=== PATIENT | female | born 1985 | race African-American/Black ===

== ENCOUNTER 2022-10-20 10:31 | Inpatient (IN) | payer BC ==
[~2022-10-20] VITALS: Ht 167.6 cm; Wt 78.5 kg
[2022-10-20] MEDS ORDERED: TETANUS AND DIPHTHERIA TOX/PF 0.5ML SYR (ADULT) IM ONE (11:30)
[2022-10-20] MEDS ORDERED: SODIUM CHLORIDE 0.9% 1,000 ML IV ONE (11:30)
[2022-10-20] MEDS ORDERED: LIDOCAINE HCL 1% 20ML VIAL (Pyxis) INJ INFIL ONE (11:45)
[2022-10-20] MEDS ORDERED: LIDOCAINE HCL/PF 1% 10 MG/ML 5ML VIAL INFIL NR (12:15)
[2022-10-20 12:44] LABS: EOSINOPHILS % 1.4 % (0.0-5.0); HEMATOCRIT. 39.4 % (36.0-48.0); HEMOGLOBIN. 13.3 g/dL (12.0-16.0); LYMPHOCYTES % 7.6 % (20.0-50.0); MEAN CORPUSCULAR HEMOGLOBIN 31.9 pg (28.0-32.0); MEAN PLATELET VOLUME 9.4 fl (7.4-10.4); MONOCYTES % 3.7 % (2.0-8.0); NEUTROPHILS % 86.3 % (40.0-76.0); PLATELET 239 x1000/uL (130-400); RED BLOOD CELL COUNT 4.15 mill/uL (4.2-5.4)
[2022-10-20 12:53] LABS: CHLORIDE 108 mEq/L (98-107)
[2022-10-20 12:55] LABS: PROTHROMBIN TIME 10.4 sec (9.6-11.0)
[2022-10-20] MEDS ORDERED: BACITRACIN 15GM TUBE TOP ONE (13:30)
[2022-10-20 18:00] VITALS: BP 113/59
[2022-10-20 20:00] VITALS: BP 106/71
[2022-10-20] MEDS ORDERED: ONDANSETRON HCL 4MG TABLET PO PRN (21:00)
[2022-10-20] MEDS ORDERED: HYDROCODONE/ACETAMINOPHEN 5/325MG TABLET PO PRN (21:00)
[2022-10-20] MEDS: FAMOTIDINE 20MG TABLET PO SCH (21:00)
[2022-10-20] MEDS ORDERED: ONDANSETRON HCL 4MG/2ML INJ IV PRN (21:00)
[2022-10-20] MEDS ORDERED: NALOXONE HCL 0.4MG/ML VIAL IV PRN (21:15)
[2022-10-21] VITALS: BP 111/52
[2022-10-21 04:00] VITALS: BP 115/73
[2022-10-21 08:00] VITALS: BP 117/75
[2022-10-21] MEDS: FAMOTIDINE 20MG TABLET PO SCH (09:00)
[2022-10-21 12:00] VITALS: BP 118/76
[2022-10-21 12:35] VITALS: BP 118/76
[2022-10-21 15:24] LABS: CLARITY URINE CLEAR (CLEAR); COLOR URINE YELLOW (YELLOW); KETONES URINE NEGATIVE (NEGATIVE); LEUKOCYTE ESTERASE URINE 1+ (NEGATIVE); NITRITE URINE NEGATIVE (NEGATIVE); OCCULT BLOOD URINE NEGATIVE (NEGATIVE); PROTEIN URINE NEGATIVE (NEGATIVE); SPECIFIC GRAVITY URINE 1.024 (1.005-1.030); UROBILINOGEN URINE 0.2 E.U./dL (0.2-1.0)
[2022-10-21 15:38] LABS: *AMPHETAMINES SCREEN URINE NEGATIVE (NEGATIVE); *BARBITURATES SCREEN URINE NEGATIVE (NEGATIVE); *BENZODIAZEPINES SCREEN URINE NEGATIVE (NEGATIVE); *COCAINE SCREEN URINE NEGATIVE (NEGATIVE); METHADONE URINE SCREEN NEGATIVE (NEGATIVE); OPIATES URINE SCREEN NEGATIVE (NEGATIVE); PHENCYCLIDINE URINE SCREEN NEGATIVE (NEGATIVE)
[2022-10-21 15:39] LABS: CANNABINOID URINE SCREEN PRESUMTIVE POSITIVE (NEGATIVE)
== END 2022-10-21 14:15 | disposition home or self-care (01) | DRG 73 ==
LOC: ER 10:31 → 3WST 15:01 → EDBEDREQ 15:06 → ER 17:51
PROVIDERS: ADMIT Internal Medicine; ATTEND Internal Medicine
PROC: 0HQ1XZZ Repair Face Skin, External Approach (ICD-10-PCS; principal; 2022-10-20)
DX: G90.8 Other disorders of autonomic nervous system (principal); I21.4 Non-ST elevation (NSTEMI) myocardial infarction; C50.919 Malignant neoplasm of unspecified site of unspecified female breast; S01.81XA Laceration without foreign body of other part of head, initial encounter; W19.XXXA Unspecified fall, initial encounter; Y92.89 Other specified places as the place of occurrence of the external cause; Y93.89 Activity, other specified; Y99.8 Other external cause status
CPT/HCPCS: 36415; 71045; 80053; 80305; 81003; 83880; 84484; 85025; 90714; 93005; 93306; 93970; 99285; J3490; J7030